=== PATIENT | male | born 1980 | race Hispanic/Latino ===

== ENCOUNTER 2021-02-27 04:49 | Emergency (ER) | payer OTHER ==
[2021-02-27] MEDS ORDERED: Ketorolac Tromethamine 60 MG/2 ML VIAL ONE (05:13)
[2021-02-27] MEDS ORDERED: Cyclobenzaprine 10 MG TAB ONE (05:13)
== END 2021-02-27 05:33 | disposition home or self-care (01) ==
LOC: NAV ERS 04:49
DX: S39.012A Strain of muscle, fascia and tendon of lower back, initial encounter (principal); V50.5XXA Driver of pick-up truck or van injured in collision with pedestrian or animal in traffic accident, initial encounter; Z79.899 Other long term (current) drug therapy; I10 Essential (primary) hypertension
CPT/HCPCS: 96372; 99283; G0390; J1885